=== PATIENT | male | born 1975 | race Caucasian/White ===

== ENCOUNTER 2017-05-16 09:38 | Emergency (ER) | payer OTHER ==
[2017-05-16] MEDS: IBUPROFEN 800 MG TAB PO (12:15)
== END 2017-05-16 12:53 | disposition home or self-care (01) ==
LOC: FTE 09:38
DX: S89.91XA Unspecified injury of right lower leg, initial encounter (principal); V89.2XXA Person injured in unspecified motor-vehicle accident, traffic, initial encounter
CPT/HCPCS: 99283; Z7502

== ENCOUNTER 2017-05-17 12:03 | Emergency (ER) | payer OTHER ==
[2017-05-17] MEDS: KETOROLAC 30 MG INJ IM (15:13)
== END 2017-05-17 16:00 | disposition home or self-care (01) ==
LOC: FTE 12:03
DX: S89.91XA Unspecified injury of right lower leg, initial encounter (principal); V03.10XA Pedestrian on foot injured in collision with car, pick-up truck or van in traffic accident, initial encounter
CPT/HCPCS: 96372; 99284-25

== ENCOUNTER 2017-07-21 11:38 | Emergency (ER) | payer OTHER | END 2017-07-21 14:10 | disposition home or self-care (01) | LOC: E/R 14:10 | DX: T63.444A Toxic effect of venom of bees, undetermined, initial encounter (principal) | CPT/HCPCS: 99283; Z7502 ==

== ENCOUNTER 2017-12-03 22:19 | Emergency (ER) | payer OTHER ==
[2017-12-04] MEDS: IBUPROFEN 800 MG TAB PO (04:24)
== END 2017-12-04 04:30 | disposition home or self-care (01) ==
LOC: FTE 22:19
DX: M25.561 Pain in right knee (principal)
CPT/HCPCS: 99282; Z7502

== ENCOUNTER 2018-01-15 21:00 | Emergency (ER) | payer OTHER ==
[2018-01-15] MEDS: IBUPROFEN 600 MG TAB PO (21:36)
== END 2018-01-15 22:30 | disposition home or self-care (01) ==
LOC: E/R 21:00
DX: F15.10 Other stimulant abuse, uncomplicated (principal)
CPT/HCPCS: 99283; Z7610

== ENCOUNTER 2018-05-23 09:33 | Emergency (ER) | payer OTHER ==
[2018-05-23] MEDS: MUPIROCIN 2% 22 GM OINT TOP (10:24)
== END 2018-05-23 11:29 | disposition home or self-care (01) ==
LOC: FTE 09:33
DX: S80.212A Abrasion, left knee, initial encounter (principal); S60.411A Abrasion of left index finger, initial encounter; W18.39XA Other fall on same level, initial encounter; Y92.89 Other specified places as the place of occurrence of the external cause
CPT/HCPCS: 73562; 99283-25

== ENCOUNTER 2018-06-07 17:07 | Emergency (ER) | payer OTHER ==
[2018-06-07] MEDS: BACITRACIN 0.9 GM OINT TOP (19:40)
[2018-06-07] MEDS: IBUPROFEN 200 MG TAB PO (19:40)
== END 2018-06-07 19:50 | disposition home or self-care (01) ==
LOC: FTE 17:07
DX: S80.01XA Contusion of right knee, initial encounter (principal); V89.2XXA Person injured in unspecified motor-vehicle accident, traffic, initial encounter
CPT/HCPCS: 99282; Z7502